=== PATIENT | male | born 1990 | race Caucasian/White ===

== ENCOUNTER 2022-03-09 20:44 | Emergency (ER) | payer BC ==
[2022-03-09 20:53] VITALS: BP 121/86; PULSE 82; TEMP 99.5; BMI 31.1
[2022-03-09] MEDS ORDERED: SODIUM CHLORIDE 1,000 ML IV STA (21:19)
[2022-03-09 21:46] LABS: HEMOGLOBIN 15.2 G/dL (11.7-16.9); MCH 30.1 pg (25.7-33.7); MCHC 35.3 g/dl (32.0-35.9); MEAN CELL VOLUME 85.4 fl (80-96); MEAN PLT VOLUME 8.5 fl (7.5-11.1); PLATELET COUNT 298.1 10^3/uL (134-434); RBC 5.03 10^6/uL (4.00-5.60); RDW 14.8 % (11.9-15.9); WHITE BLOOD COUNT 12.5 10^3/uL (4.0-10.8)
[2022-03-09 21:55] LABS: ALBUMIN 4.5 g/dl (3.4-5.0); CALCIUM 9.6 mg/dl (8.5-10); CREATININE 1.1 mg/dl (0.55-1.3); TOT PROT 7.6 g/dl (6.4-8.2)
[2022-03-09 22:00] LABS: BILIRUBIN,TOTAL 1.6 mg/dl (0.2-1)
[2022-03-09 22:24] LABS: PLATELET ESTIMATE ADEQUATE
[2022-03-09] MEDS ORDERED: ACETAMINOPHEN INJECTION 100 ML IVPB ONE (23:54)
[2022-03-09] MEDS ORDERED: ACETAMINOPHEN 1000 MG/100 ML BAG IVPB ONE (23:54)
[2022-03-09] MEDS ORDERED: AMPICILLIN NA/SULBACTAM NA 1.5 GM in SODIUM CHLORIDE 100 ML IVPB ONE (23:57)
[2022-03-09] MEDS ORDERED: AMPICILLIN NA/SULBACTAM NA 1.5 GM VIAL ONE (23:59)
== END 2022-03-10 01:01 | disposition home or self-care (01) ==
LOC: FER 20:44
PROC: 3E0333Z Introduction of Anti-inflammatory into Peripheral Vein, Percutaneous Approach (ICD-10-PCS; principal; 2022-03-09)
PROC: 3E03329 Introduction of Other Anti-infective into Peripheral Vein, Percutaneous Approach (ICD-10-PCS; 2022-03-09)
PROC: 3E0337Z Introduction of Electrolytic and Water Balance Substance into Peripheral Vein, Percutaneous Approach (ICD-10-PCS; 2022-03-09)
DX: K57.92 Diverticulitis of intestine, part unspecified, without perforation or abscess without bleeding (principal)
CPT/HCPCS: 0241U-QW; 36415; 74177-TC; 80053; 81003; 81015; 85025; 99285-25; Q9967